=== PATIENT | female | born 1965 | race Caucasian/White ===

== ENCOUNTER 2019-07-15 10:46 | Observation (INO) | payer OTHER ==
[~2019-07-15] VITALS: Ht 160 cm; Wt 89.8 kg
[2019-07-15 11:34] LABS: BASOPHILS # (AUTO) 0.01 x10^3/uL (0-0.1); BASOPHILS % (AUTO) 0 % (0-1); EOSINOPHILS # (AUTO) 0.48 x10^3/uL (0-0.4); EOSINOPHILS % (AUTO) 3 % (1-7); LYMPHOCYTES # (AUTO) 2.29 x10^3/uL (1-3.4); LYMPHOCYTES % (AUTO) 15 % (22-44); MD NO; MEAN CORPUSCULAR HGB CONC 33.4 g/dL (32.4-35.8); MEAN CORPUSCULAR VOLUME 92.8 fL (80-100); MEAN PLATELET VOLUME 7.7 fL (7.4-10.4); MONOCYTES # (AUTO) 0.57 x10^3/uL (0.2-0.8); MONOCYTES % (AUTO) 4 % (2-9); NEUTROPHILS # (AUTO) 11.77 x10^3/uL (1.8-6.8); NEUTROPHILS % (AUTO) 78 % (42-75); PLATELET COUNT 301 x10^3/uL (130-400); RED CELL DISTRIBUTION WIDTH 13.4 % (9.6-15.2)
[2019-07-15 11:50] LABS: CHLORIDE 106 mmol/L (98-107)
--- NOTE | 2019-07-15 11:50 | NUR ---
IBIS Sung at bedside for initial assessment.
[2019-07-15 12:01] LABS: ALANINE AMINOTRANSFERASE 16 U/L (12-78); ANION GAP 6 mmol/L (5-15); BILIRUBIN,TOTAL 1.1 mg/dL (0.2-1.0); CALCIUM 9.7 mg/dL (8.5-10.1); CREATININE 1.05 mg/dL (0.55-1.02)
--- NOTE | 2019-07-15 12:12 | NUR ---
pt presents to ED with c/o generalized abd pain/cramping, n/v since last night. pt a&Uo, resps even and unlabored. pt instructed to provide clean catch urine sample, pt up to bathroom with steady gait at this time.
--- NOTE | 2019-07-15 12:23 | NUR ---
URINE SAMPLE COLLECTED AND SENT TO LAB. PT TO XRAY AT THIS TIME.
[2019-07-15 12:33] LABS: MICROSCOPIC NOT IND
[2019-07-15 12:39] LABS: TROPONIN I < 0.015 ng/mL (0.000-0.045)
[2019-07-15 12:42] LABS: ALKALINE PHOSPHATASE 138 U/L (45-117); TOTAL PROTEIN 7.6 g/dL (6.4-8.2)
--- NOTE | 2019-07-15 12:46 | NUR ---
ultrasound in progress at bedside.
--- NOTE | 2019-07-15 13:09 | NUR ---
US complete. pt a&o, resps even and unlabored. nadn. pt denies need for pain medication. pt awaiting US results and dispo.
--- NOTE | 2019-07-15 13:55 | NUR ---
pt resting on gurney, resps even and unlabored. pt denies pain. no n/v/d. 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 awaiting US results and dispo.
--- NOTE | 2019-07-15 13:57 | NUR ---
REPORT FROM HARJIT QUESADA. PT CARE RESPONSIBILITIES ASSUMED.
--- NOTE | 2019-07-15 14:59 | NUR ---
PT UPDATED ON PLAN OF CARE. REMINDED THAT SHE SHOULD NOT EAT OR DRINK ANYTHING DUE TO IMPENDING SURGICAL INTERVENTION. PT VERBALIZES UNDERSTANDING. ALL QUESTIONS ADDRESSED APPROPRIATELY, DENIES ANY PAIN OR FURTHER NEEDS AT THIS TIME. CALL LIGHT IN REACH.
[2019-07-15] MEDS ORDERED: CEFOTETAN PMX 1GM/50ML 50 ML IV ONE (15:00)
[2019-07-15] MEDS ORDERED: MORPHINE SULFATE 4 MG/ML, 1ML IVPush ONE (15:00)
[2019-07-15] MEDS ORDERED: CEFOTETAN PMX 1GM/50ML 50 ML ONE (15:07)
--- NOTE | 2019-07-15 15:18 | NUR ---
REPORT CALLED TO HARJIT JUAREZ.
[2019-07-15 15:51] VITALS: BP 134/86
[2019-07-15] MEDS ORDERED: hydrALAzine 20 MG/ML, 1ML IV PRN (17:30)
[2019-07-15] MEDS ORDERED: LABETALOL 5MG/ML, 20ML IV PRN (17:30)
[2019-07-15] MEDS ORDERED: DIPHENHYDRAMINE 50 MG/ML, 1ML IVPush PRN ×3 (17:30→20:30)
[2019-07-15] MEDS ORDERED: BUPIVACAINE/PF-EPI 0.5% 1:200K ONE (17:30)
[2019-07-15] MEDS ORDERED: BUPIVACAINE/PF 0.5% ONE (17:30)
[2019-07-15] MEDS ORDERED: PROMETHAZINE 25 MG/ML, 1ML IVPush PRN (17:30)
[2019-07-15] MEDS ORDERED: OXYcodone 5 MG/5 ML ORAL.SOL UDC PO PRN ×2 (17:30→20:30)
[2019-07-15] MEDS ORDERED: MEPERIDINE/PF 25MG/0.5ML IVPush PRN (17:30)
[2019-07-15] MEDS ORDERED: HALOPERIDOL 5 MG/ML IV PRN (17:30)
[2019-07-15] MEDS ORDERED: FENTANYL PF 250 MCG/5ML ONE (17:31)
[2019-07-15] MEDS ORDERED: MIDAZOLAM 1 MG/ML, 2ML ONE (17:31)
[2019-07-15] MEDS ORDERED: ROCURONIUM 10MG/ML,5ML ONE (18:35)
[2019-07-15] MEDS ORDERED: PROPOFOL 10 MG/ML, 20ML ONE (18:35)
[2019-07-15] MEDS ORDERED: DEXAMETHASONE 4 MG/ML, 1ML ONE (18:35)
[2019-07-15] MEDS ORDERED: GLYCOPYRROLATE 0.2MG/1ML, 5ML ONE (18:35)
[2019-07-15] MEDS ORDERED: CEFAZOLIN 1,000 MG ONE (18:35)
[2019-07-15] MEDS ORDERED: SUCCINYLCHOLINE 20 MG/ML, 10ML ONE (18:35)
[2019-07-15] MEDS ORDERED: ONDANSETRON 2MG/ML, 2ML ONE ×2 (18:35→20:13)
[2019-07-15] MEDS ORDERED: NEOSTIGMINE 1 MG/ML, 10ML ONE (18:35)
[2019-07-15] MEDS ORDERED: FENTANYL PF 100 MCG/2ML ONE (18:50)
[2019-07-15] MEDS ORDERED: DIPHENHYDRAMINE 50 MG/ML, 1ML ONE (18:50)
[2019-07-15] MEDS ORDERED: OXYcodone 5 MG/5 ML ORAL.SOL UDC ONE (18:51)
[2019-07-15] MEDS: FENTANYL PF 100 MCG/2ML IV PRN ×3 (18:53→19:14)
[2019-07-15] MEDS ORDERED: HYDROmorphone 1 MG/ML, 1ML INJ ONE (19:08)
[2019-07-15] MEDS: HYDROmorphone 1 MG/ML, 1ML INJ IVPush PRN ×2 (19:11→19:19)
[2019-07-15] MEDS ORDERED: PROMETHAZINE 25 MG/ML, 1ML ONE (19:32)
[2019-07-15] MEDS ORDERED: OXYC-302 PO (20:20)
[2019-07-15] MEDS ORDERED: ONDANSETRON 2MG/ML, 2ML IVPush PRN (20:30)
== END 2019-07-15 21:35 | disposition home or self-care (01) ==
LOC: ED 13:03 → EDIP 14:42 → 4NE 15:40
PROVIDERS: ADMIT Surgery; ATTEND Surgery
DX: K80.00 Calculus of gallbladder with acute cholecystitis without obstruction (principal); F17.200 Nicotine dependence, unspecified, uncomplicated; Z90.710 Acquired absence of both cervix and uterus
CPT/HCPCS: 36415; 47562; 74021; 76700; 80053; 81003; 83690; 84484; 85025; 88304; 93005; 96365; 96375; 99285; G0378; J0330; J0690; J1100; J1170; J1200; J2250; J2405; J2550; J2704; J2710; J3010; J3490; S0020